=== PATIENT | male | born 1950 | race Caucasian/White ===

== ENCOUNTER 2016-03-25 11:09 | Emergency (ER) | payer BC ==
[~2016-03-25] VITALS: Ht 193 cm; Wt 104.0 kg
[2016-03-25 11:20] VITALS: BP 144/84; PULSE 65; RESP 16; TEMP 97.8; O2SAT 94
[2016-03-25] MEDS ORDERED: SIMV40TA PO (11:24)
[2016-03-25] MEDS ORDERED: SODIUM CHLORIDE 0.9% FLUSH 5 ML FLUSH IVF PRN (11:30)
[2016-03-25] MEDS ORDERED: LORazepam 2 MG/ML VIAL IV PUSH ONE (11:30)
[2016-03-25] MEDS ORDERED: ASPIRIN 81 MG CHEW TAB PO ONE (11:30)
[2016-03-25 11:31] VITALS: RESP 16; O2SAT 98
--- NOTE | 2016-03-25 11:34 | PD ---
HPI . "I just don't feel right" Chief Complaint: Chest Pain Time Seen by Provider: 11:23 Travel History International Travel<30 days: No Contact w/Intl Traveler<30days: No Traveled to known affect area: No History of Present Illness HPI Patient presents complaining with lightheadedness and chest discomfort. The symptoms have waxed and waned and come and gone for the last couple days. The lightheadedness was exacerbated by standing up after being bent over. He has not noted any exacerbating or relieving factors regarding the chest discomfort. [facility] Past Medical History Hx Anticoagulant Therapy: No Cardiovascular Problems: No Chemotherapy: No Cerebrovascular Accident: No Diabetes: No Respiratory: No Past Surgical History Hysterectomy: No Social History Tobacco Use: Yes Allergies-Medications (Allergen,Severity, Reaction): Coded Allergies: No Known Allergies (Unverified , 03/25/16) Reported Meds & Prescriptions Reported Meds & Active Scripts Active Reported Simvastatin 40 Mg Tab 40 Mg PO HS Review of Systems Except as stated in HPI: all other systems reviewed are Neg General / Constitutional: Positive: Other (just feels poorly.), No: Fever, Chills Eyes: No: Blurred Vision HENT: Positive: Lightheadedness, No: Headaches, Sore Throat, Rhinitis, Rhinorrhea, Congestion Cardiovascular: Positive: Chest Pain or Discomfort, No: Syncope Respiratory: Positive: Shortness of Breath Gastrointestinal: No: Nausea, Vomiting, Diarrhea, Abdominal Pain Genitourinary: No: Frequency, Dysuria Neurologic: No: Syncope, Focal Abnormalities Physical Exam Narrative GENERAL: No acute distress SKIN: Warm and dry. HEAD: Atraumatic. Normocephalic. EYES: Pupils equal and round. ENT: No nasal bleeding or discharge. Mucous membranes pink and moist. NECK: Trachea midline. Neck is supple. CARDIOVASCULAR: Regular rate and rhythm. Heart sounds are normal. RESPIRATORY: No accessory muscle use. Lungs are clear with full air movement throughout. GASTROINTESTINAL: Abdomen soft, non-tender, nondistended. MUSCULOSKELETAL: No obvious deformities. No edema. NEUROLOGICAL: Awake and alert. No obvious cranial nerve deficits. Motor grossly within normal limits. Normal speech. PSYCHIATRIC: Appropriate mood and affect; insight and judgment normal. He appears very anxious with increased psychomotor activity. Data Data Last Documented VS Vital Signs Date Time Temp Pulse Resp B/P Pulse Ox O2 Delivery O2 Flow Rate FiO2 03/25/16 11:45 55 134/87 144/84 03/25/16 11:31 16 98 Room Air 03/25/16 11:20 97.8 Orders Ckmb (Isoenzyme) Profile (03/25/16 11:28) Complete Blood Count With Diff (03/25/16 11:28) Comprehensive Metabolic Panel (03/25/16 11:28) Magnesium (Mg) (03/25/16 11:28) Troponin I (03/25/16 11:28) Chest, Single Ap (03/25/16 11:28) Ecg Monitoring (03/25/16 11:28) Bilateral Bp Monitoring (03/25/16 11:28) Iv Access Insert/Monitor (03/25/16 11:28) Oximetry (03/25/16 11:28) Aspirin Chew (Aspirin Chew) (03/25/16 11:30) Sodium Chloride 0.9% Flush (Ns Flush) (03/25/16 11:30) Lorazepam Inj (Ativan Inj) (03/25/16 11:30) CKMB (03/25/16 11:45) CKMB% (03/25/16 11:45) Labs Laboratory Tests Test 03/25/16 11:45 White Blood Count 4.3 TH/MM3 Red Blood Count 4.74 MIL/MM3 Hemoglobin 15.3 GM/DL Hematocrit 45.1 % Mean Corpuscular Volume 95.3 FL Mean Corpuscular Hemoglobin 32.4 PG Mean Corpuscular Hemoglobin 34.0 % Concent Red Cell Distribution Width 12.2 % Platelet Count 261 TH/MM3 Mean Platelet Volume 6.7 FL Neutrophils (%) (Auto) 55.8 % Lymphocytes (%) (Auto) 29.2 % Monocytes (%) (Auto) 9.6 % Eosinophils (%) (Auto) 3.8 % Basophils (%) (Auto) 1.6 % Neutrophils # (Auto) 2.3 TH/MM3 Lymphocytes # (Auto) 1.3 TH/MM3 Monocytes # (Auto) 0.4 TH/MM3 Eosinophils # (Auto) 0.2 TH/MM3 Basophils # (Auto) 0.1 TH/MM3 CBC Comment DIFF FINAL Differential Comment Sodium Level 142 MEQ/L Potassium Level 5.4 MEQ/L Chloride Level 108 MEQ/L Carbon Dioxide Level 26.8 MEQ/L Anion Gap 7 MEQ/L Blood Urea Nitrogen 9 MG/DL Creatinine 0.96 MG/DL Estimat Glomerular Filtration 79 ML/MIN Rate Random Glucose 102 MG/DL Calcium Level 8.9 MG/DL Magnesium Level 2.5 MG/DL Total Bilirubin 0.7 MG/DL Aspartate Amino Transf 36 U/L (AST/SGOT) Alanine Aminotransferase 28 U/L (ALT/SGPT) Alkaline Phosphatase 52 U/L Total Creatine Kinase 137 U/L Creatine Kinase MB LESS THAN 0.5 NG/ML Troponin I LESS THAN 0.02 NG/ML Total Protein 7.6 GM/DL Albumin 3.5 GM/DL MDM Medical Decision Making Medical Screen Exam Complete: Yes Emergency Medical Condition: Yes Interpretation(s) EKG shows a normal sinus rhythm with a right bundle-branch block. He does not have any old EKGs in our system for comparison. Differential Diagnosis Differential diagnosis of weakness includes but is not limited to infection, CVA , electrolyte disturbance, renal failure, hypoglycemia, UTI, ACS Narrative Course Patient presents for evaluation of just feeling poorly. He has had some intermittent chest pain, shortness of breath and lightheadedness. Chest x-ray is negative to the radiologist's interpretation. Chest x-ray was independently viewed by me. CBC is normal. Chemistries are unremarkable. His CK and troponin are negative. Patient reports that he is a little bit sleepy following the Ativan but feels better. Diagnosis Primary Impression: Chest pain Qualified Code: R07.9 - Chest pain, unspecified type Additional Impression: Lightheadedness Disposition: 01 DISCHARGE HOME Condition: Stable Corina Sherman MD Mar 25, 2016 11:34
[2016-03-25 11:45] VITALS: BP_SYST 134; BP_SYST 144; BP_DIAS 84; BP_DIAS 87; PULSE 55
[2016-03-25 11:52] LABS: AUTOMATED NEUTROPHIL # 2.3 TH/MM3 (1.8-7.7); BASOPHIL # 0.1 TH/MM3 (0-0.2); BASOPHIL % 1.6 % (0.0-2.0); EOSINOPHIL # 0.2 TH/MM3 (0-0.4); EOSINOPHIL % 3.8 % (0.0-4.0); HEMATOCRIT 45.1 % (39.0-51.0); HEMO FLAGS DIFF FINAL; LYMPH % 29.2 % (9.0-44.0); LYMPHOCYTE # 1.3 TH/MM3 (1.0-4.8); MEAN CELL VOLUME 95.3 FL (80.0-100.0); MEAN CORPUSCULAR HEMOGLOBIN 32.4 PG (27.0-34.0); MONO % 9.6 % (0.0-8.0); NEUT % 55.8 % (16.0-70.0); PLATELET COUNT 261 TH/MM3 (150-450); RED BLOOD COUNT 4.74 MIL/MM3 (4.50-5.90); RED CELL DISTRIBUTION WIDTH 12.2 % (11.6-17.2); WHITE BLOOD COUNT 4.3 TH/MM3 (4.0-11.0)
--- NOTE | 2016-03-25 11:56 | RADHPO ---
EXAM DATE/TIME: 03/25/2016 11:37 [facility] COMPARISON: No previous studies available for comparison. INDICATIONS : Chest pressure, lightheaded. MEDICAL HISTORY : None. SURGICAL HISTORY : None. ENCOUNTER: Initial ACUITY: 3 days PAIN SCORE: 2/10 LOCATION: Bilateral chest FINDINGS: Portable AP view of the chest demonstrates a normal-sized cardiac silhouette. No effusion, consolidat ion, or pneumothorax is visualized. The bones and soft tissues demonstrate no acute abnormality.CONCL USION: No acute cardiopulmonary abnormality is identified. Rohan Almaraz MD on March 25, 2016 at 11:49 Board Certified Radiologist. This report was verified electronically.
[2016-03-25 11:58] LABS: CHLORIDE 108 MEQ/L (98-107); SODIUM (NA) 142 MEQ/L (136-145)
[2016-03-25 12:02] LABS: ANION GAP 7 MEQ/L (5-15); BICARBONATE 26.8 MEQ/L (21.0-32.0); MAGNESIUM 2.5 MG/DL (1.5-2.5)
[2016-03-25 12:03] LABS: BLOOD UREA NITROGEN 9 MG/DL (7-18)
[2016-03-25 12:05] LABS: ALT (GPT) 28 U/L (12-78); AST (GOT) 36 U/L (15-37)
[2016-03-25 12:06] LABS: GLOMERULAR FILTRATION RATE 79 ML/MIN (>89)
[2016-03-25 12:07] LABS: TOTAL BILIRUBIN ADULT 0.7 MG/DL (0.2-1.0)
[2016-03-25 12:08] LABS: ALKALINE PHOSPHATASE 52 U/L (45-117); CREATINE KINASE 137 U/L (39-308)
[2016-03-25 12:28] LABS: POTASSIUM 5.4 MEQ/L (3.5-5.1)
[2016-03-25 12:41] LABS: CKMB LESS THAN 0.5 NG/ML (0.5-3.6)
[2016-03-25 13:04] VITALS: BP 113/72; PULSE 69; RESP 16; O2SAT 98
--- NOTE | 2016-03-26 17:53 | EKG ---
Date Performed: 03/25/2016 Time Performed: 11:06:36 PTAGE: 65 years EKG: Sinus rhythm Right axis deviation Right bundle branch block Inferior T wave changes are nonspecific Low QRS volta ges in precordial leads Abnormal ECG NO PREVIOUS TRACING DOCTOR: Alia Weeks Interpretating Date/Time 03/26/2016 17:51:49
[2016-06-01] MEDS ORDERED: PNEU13P IM (11:41)
[2016-06-01] MEDS ORDERED: SIMV40TA PO (11:53)
== END 2016-03-25 13:11 | disposition home or self-care (01) ==
LOC: PHED 11:09
DX: R07.9 Chest pain, unspecified (principal); R42 Dizziness and giddiness; I45.10 Unspecified right bundle-branch block; R94.31 Abnormal electrocardiogram [ECG] [EKG]
CPT/HCPCS: 71010; 80053; 82550; 82552; 83735; 84484; 85025; 93005; 96374; 99285; J2060